=== PATIENT | female | born 1960 | race Caucasian/White ===

== ENCOUNTER 2023-02-13 08:30 | Day surgery (SDC) | payer OTHER ==
[2023-02-13] MEDS ORDERED: fentaNYL 50 MCG/ML SDV ONE (08:36)
[2023-02-13] MEDS ORDERED: Propofol 200 MG/20 ML SDV ONE (08:36)
[2023-02-13] MEDS ORDERED: Midazolam 1 MG/ML 2 ML SDV ONE (08:36)
[2023-02-13] MEDS ORDERED: Lactated Ringers 1,000 ML IV SCH (09:00)
== END 2023-02-13 11:23 | disposition home or self-care (01) ==
LOC: JP.SDS 08:30
PROVIDERS: ATTEND Family Medicine
DX: D12.2 Benign neoplasm of ascending colon (principal); R73.03 Prediabetes; E66.9 Obesity, unspecified; Z88.5 Allergy status to narcotic agent; Z79.899 Other long term (current) drug therapy; Z68.33 Body mass index [BMI] 33.0-33.9, adult
CPT/HCPCS: J2250; J2704; J3010; J7120